=== PATIENT | female | born 1965 | race Hispanic/Latino ===

== ENCOUNTER 2017-12-14 14:30 | Outpatient (CLI) | payer BC | END 2017-12-14 14:31 | disposition home or self-care (01) | LOC: BICMAMMO 14:30 | PROVIDERS: ATTEND Family Medicine | DX: Z12.31 Encounter for screening mammogram for malignant neoplasm of breast (principal); Z85.3 Personal history of malignant neoplasm of breast | CPT/HCPCS: 77063; 77067 ==

== ENCOUNTER 2018-03-29 13:57 | Outpatient (CLI) | payer BC ==
--- NOTE | 2018-03-29 16:03 | ULT ---
PELVIC SONOGRAM: HISTORY: Irregular menses. Pelvic pain. TECHNIQUE: Transabdominal and transvaginal imaging with duplex evaluation. FINDINGS: The urinary bladder is incompletely distended. The uterus has a heterogeneous echotexture and is 7.6 cm. The endometrium is 0.9 cm. No free fluid. The uterus is retroverted on the transvaginal image s. The right ovary is 2.1 cm and the left is 3.7 cm. A dominant follicle of the left ovary is 2.4 cm. Good color and spectral Doppler flow bilaterally. IMPRESSION: Retroverted uterus. No significant abnormalities demonstrated. POS: [facility]
== END 2018-03-29 13:58 | disposition home or self-care (01) ==
LOC: SCSULT 13:57
PROVIDERS: ATTEND Family Medicine
DX: N92.6 Irregular menstruation, unspecified (principal); N85.4 Malposition of uterus
CPT/HCPCS: 76856

== ENCOUNTER 2018-12-15 14:28 | Outpatient (CLI) | payer OTHER, SELFPAY ==
--- NOTE | 2018-12-15 14:53 | MMO ---
Bilateral MAMMO Bilat Screen [facility]. CLINICAL HISTORY: Patient is 52 years old and is seen for screening. The patient has the following family history of breast cancer: mother. The patient has no personal history of cancer. VIEWS: The views performed were: bilateral craniocaudal with tomosynthesis and bilateral mediolateral oblique with tomosynthesis. FILMS COMPARED: The present examination has been compared to prior imaging studies performed at [facility] [place] on 10/06/2012, and at [facility] on 11/15/2014, 11/26/2015, 11/27/2016 and 12/14/2017. MAMMOGRAM FINDINGS: The breasts are heterogeneously dense, which could obscure a lesion on mammography. There are no suspicious masses, suspicious calcifications, or new areas of architectural distortion. IMPRESSION: THERE IS NO MAMMOGRAPHIC EVIDENCE OF MALIGNANCY. A ROUTINE FOLLOW-UP MAMMOGRAM IN 1 YEAR IS RECOMMENDED. THE RESULTS OF THIS EXAM WERE SENT TO THE PATIENT. ACR BI-RADS Category 1 - Negative MAMMOGRAPHY NOTE: 1. A negative mammogram report should not delay a biopsy if a dominant of clinically suspicious mass is present. 2. Approximately 10% to 15% of breast cancers are not detected by mammography. 3. Adenosis and dense breasts may obscure an underlying neoplasm.
== END 2018-12-15 14:29 | disposition home or self-care (01) ==
LOC: BICMAMMO 14:28
PROVIDERS: ATTEND Family Medicine
DX: Z12.31 Encounter for screening mammogram for malignant neoplasm of breast (principal); Z80.3 Family history of malignant neoplasm of breast
CPT/HCPCS: 77063; 77067